=== PATIENT | female | born 1970 | race Caucasian/White ===

== ENCOUNTER 2018-08-18 15:54 | Emergency (ER) ==
[2018-08-18 18:20] VITALS: BP 159/95; TEMP 97.5; BMI 35.6
--- NOTE | 2018-08-18 19:02 | ED.PDOC ---
General ED Provider: Dr. JEANNE SCHULTZ-ER Chief Complaint: Fall Stated Complaint: i fell 2 days ago now my head and neck and lower back and right knee hurt Time Seen by Physician: 18:15 Mode of Arrival: Walk-In Information Source: Patient Exam Limitations: No limitations Primary Care Provider: NATHANIEL ORTIZ Nursing and Triage Documentation Reviewed and Agree: No Does patient meet sepsis criteria?: No System Inflammatory Response Syndrome: Not Applicable Sepsis Protocol: For patient's 13 years and over: Temp is 96.8 and below OR 101 and greater Pulse >90 BPM Resp >20/minute Acutely Altered Mental Status Are patient's symptoms suggestive of a new infection, such as: -Pneumonia -Skin, Soft Tissue -Endocarditis -UTI -Bone, Joint Infection -Implantable Device -Acute Abdominal Infection -Wound Infection -Meningitis -Blood Stream Catheter Infection -Unknown Trauma/Injury Complaint Exam - Trauma Complaint/Exam Location of Pain or Injury: Reports: Head, Neck, Back, RLE Mechanism of Injury: Reports: Fall Symptoms Are: Still present Timing of Treatment: Immediate Initial Severity: Mild Current Severity: Moderate Character: Reports: Dull, Aching Aggravating: Reports: Movement, Weight-bearing, Ambulation : No Penetrating Injury Risk Factors: Reports: None Immobilization Removed Post Exam: No Compartment Syndrome Risk Factors: Present: Pain Skin Findings: Present: Tenderness Differential Diagnoses: Contusions, Fracture Review of Systems - Review Of Systems Constitutional: Reports: No symptoms Eyes: Reports: No symptoms Ears, Nose, Mouth, Throat: Reports: No symptoms Respiratory: Reports: No symptoms Cardiac: Reports: No symptoms GI: Reports: No symptoms : Reports: No symptoms Musculoskeletal: Reports: Back pain, Joint pain, Neck pain Skin: Reports: No symptoms Neurological: Reports: Headache Endocrine: Reports: No symptoms Hematologic/Lymphatic: Reports: No symptoms All Other Systems: Reviewed and Negative Past Medical History - Past Medical History Previously Healthy: Yes Endocrine: Reports: None Cardiovascular: Reports: None Respiratory: Reports: None Hematological: Reports: None Gastrointestinal: Reports: None Genitourinary: Reports: None Neuro/Psych: Reports: None Musculoskeletal: Reports: None Cancer: Reports: None Last Menstrual Period: hysterectomy - Surgical History General Surgical History: Reports: None - Family History Family History: Reports: None - Social History Smoking Status: Current every day smoker, Light tobacco smoker Hx Substance Use: No Alcohol Screening: None Physical Exam - Physical Exam Appearance: Well-appearing Eyes: MARCELINA, EOMI, Conjunctiva clear ENT: Ears normal, Nose normal, Oropharynx normal Neck: Supple Respiratory: Airway patent, Breath sounds clear, Breath sounds equal, Respirations nonlabored Cardiovascular: RRR, Pulses normal, No rub, No murmur GI/: Soft, Nontender, No masses, Bowel sounds normal, No Organomegaly Musculoskeletal: Limited ROM Skin: Warm, Dry, Normal color Neurological: Sensation intact, Motor intact, Reflexes intact, Cranial nerves intact, Alert, Oriented Psychiatric: Affect appropriate, Mood appropriate Interpretation - Radiology Interpretation Radiology Interpretation By: Radiologist Radiology Results: Negative Exam Interpreted: CT Scan Re-Evaluation - Re-Evaluation Time of Re-Evaluation: 20:43 Status: Improved Vital Signs Stable: Yes Pain Level: 2 Appearance: NAD Lungs: Clear Skin: Warm and Dry Neuro: Alert and Oriented X3 CV: RRR Critical Care Note - Critical Care Note Total Time (mins): 0 Course - Course Orders, Labs, Meds: Orders Category Date Time Status Ketorolac Tromethamine [Toradol] MEDS 08/18/18 20:31 Discontinued 60 mg IM ONCE STA Orphenadrine Citrate [Norflex] MEDS 08/18/18 20:31 Discontinued 60 mg IM ONCE STA CT CERVICAL SPINE W/O CONTRAST Stat RADS 08/18/18 18:[address] HEAD W/O CONTRAST Stat RADS 08/18/18 18:[address] KNEE RIGHT WITHOUT CONTRAST Stat RADS 08/18/18 18:[address] LUMBAR SPINE W/O CONTRAST Stat RADS 08/18/18 18:59 Completed Medications Discontinued Medications Generic Name Dose Route Start Last Admin Trade Name Freq PRN Reason Stop Dose Admin Ketorolac Tromethamine 60 mg 08/18/18 20:31 08/18/18 20:41 Toradol IM 08/18/18 20:32 60 mg ONCE STA Administration Orphenadrine Citrate 60 mg 08/18/18 20:31 08/18/18 20:40 Norflex IM 08/18/18 20:32 60 mg ONCE STA Administration Vital Signs: Temp Pulse Resp BP Pulse Ox 08/18/18 18:12 97.5 F L 65 20 159/95 H 95 Departure - Departure Time of Disposition: 20:43 Disposition: HOME SELF-CARE Discharge Problem: Fall Qualifiers: Encounter type: initial encounter Qualified Code(s): W19.XXXA - Unspecified fall, initial encounter Instructions: Cervical Strain (ED) Condition: Good Pt referred to PMD for follow-up: Yes IPMP verified?: No Additional Instructions: norco 7.5mg q 6hrs prn pain #10 f/u with pcp Allergies/Adverse Reactions: Allergies codeine Adverse Reaction (Verified 08/18/18 18:21) Nausea prochlorperazine [From Compazine] Adverse Reaction (Verified 08/18/18 18:21) Anxiety sumatriptan [From Imitrex] Adverse Reaction (Verified 08/18/18 18:21) ELEVATES BLOOD PRESSURE AND MAKES MIGRAINE WORSE Home Medications: Ambulatory Orders Gabapentin [Neurontin] 600 mg PO TID 02/19/16 Hydrochlorothiazide 12.5 mg PO BID 02/19/16 Lisinopril 20 mg PO BID 02/19/16 Metoprolol Tartrate [Lopressor] 50 mg PO BID 02/19/16 Pantoprazole Sodium [Protonix] 40 mg PO DAILY 08/18/18 Disposition Discussed With: Patient
[2018-08-18] MEDS ORDERED: NORFLEX IM STA (20:31)
[2018-08-18] MEDS ORDERED: TORADOL IM STA (20:31)
--- NOTE | 2018-08-18 20:33 | CT ---
EXAM: CT head without contrast HISTORY: Headache post fall COMPARISON: CT head 02/19/2016 and multiple priors TECHNIQUE: Serial axial images of the brain were obtained from the skull base to the vertex without IV contrast. FINDINGS: The ventricles, cisterns and sulci are normal. The gonzalez-white matter junction is maintain ed. No midline shift or mass is identified. There is no abnormal intra or extra-axial fluid collect ion. The paranasal sinuses and mastoid air cells are clear. The osseous calvarium is intact. IMPRESSION: No acute intracranial abnormality or hemorrhage.
--- NOTE | 2018-08-18 20:35 | CT ---
EXAM: CT cervical spine without contrast. HISTORY: Fall COMPARISON: CT cervical spine 06/27/2010 TECHNIQUE: Serial axial images of the cervical spine were obtained from the skull base through the l niya apices without contrast. These were viewed in multiple planes. FINDINGS: Vertebral bodies demonstrate normal height, disc space and alignment. There is no acute c ompression fracture or subluxation. The facets and posterior processes are unremarkable. The odonto id process is unremarkable. C1 ring is intact. Limited views of the soft tissues are unremarkable. IMPRESSION: No acute compression fracture or subluxation of the cervical spine.
--- NOTE | 2018-08-18 20:36 | CT ---
EXAM: CT lumbar spine without intravenous contrast 08/18/2018. Sagittal and coronal reformatted margo ges obtained HISTORY: Back pain. Fall COMPARISON: 07/10/2018 FINDINGS: A normal lumbar lordosis is maintained. Vertebral bodies appear intact without fracture. The facet joints align normally. Chronic degenerative endplate changes. Multilevel facet arthropathy There is no evidence of acute fracture or subluxation at any level. IMPRESSION: No acute osseous abnormality of the lumbar spine.
--- NOTE | 2018-08-18 20:42 | CT ---
EXAM: CT right knee without intravenous contrast 08/18/2018. Sagittal and coronal reformatted image s obtained HISTORY: Fall. Pain COMPARISON: None. FINDINGS: Normal anatomic alignment is maintained. The osseous structures appear intact. There is no evidence of acute fracture or dislocation. Chronic osteoarthritic degenerative change. There is joint space narrowing and osteophyte formation. Small suprapatellar joint effusion. IMPRESSION: 1. Chronic osteoarthritic change 2. Small suprapatellar joint effusion. 3. No acute post traumatic osseous abnormality.
== END 2018-08-18 21:01 | disposition home or self-care (01) ==
LOC: ED 18:11
DX: M54.2 Cervicalgia (principal); M54.5 Low back pain; R51 Headache; M25.561 Pain in right knee; W19.XXXA Unspecified fall, initial encounter; F17.210 Nicotine dependence, cigarettes, uncomplicated
CPT/HCPCS: 96372; 99283